=== PATIENT | female | born 1975 ===

== ENCOUNTER 2021-03-24 08:45 | Outpatient (REF) | payer OTHER, SELFPAY ==
[2021-03-24 11:32] LABS: Hematocrit 39.9 % (37-47); Hemoglobin 13.3 g/dl (12.0-16.0); Mean Corpuscular HGB Conc 33.3 g/dl (31.0-35.0); Mean Corpuscular Hemoglobin 29.8 pg (27.0-33.0); Mean Corpuscular Volume 89.5 fL (80-98); Mean Platelet Volume 10.5 fL (9.4-12.3); Platelet Count 299 X10*3/uL (160-400); Red Blood Count 4.46 X10*6/uL (4.20-5.50); Red Cell Distribution Width 12.1 % (11.0-16.0); White Blood Count 5.3 X10*3/uL (4.8-10.8)
[2021-03-24 11:49] LABS: Appearance Urine TURBID; Color Urine YELLOW; Glucose Urine UA NEG (NEG); Leukocyte Esterase Urine 1+ (NEG); Nitrite Urine NEG (NEG); Specific Gravity - Urine >= 1.030 (1.005-1.025); Urine Blood NEG (NEG); Urine Ketones NEG (NEG); Urine Protein NEG (NEG-TRACE)
[2021-03-24 12:08] LABS: Vitamin D 25-OH Total 26.2 ng/mL (>30)
[2021-03-24 12:17] LABS: Amorphous Sediment Urine 4+ /LPF; RBC Urine 0 /HPF (0); Squamous Epithelial Cell Urine 1+ /LPF; WBC Urine 0-2 /HPF (0-4)
[2021-03-24 12:21] LABS: Alanine Aminotransferase 10 U/L (0-31); Albumin Level 4.7 g/dL (3.5-5.0); Alkaline Phosphatase 55 U/L (39-117); Anion Gap 14 (12-20); Aspartate Amino Transferase 14 U/L (5-31); Bilirubin Total 0.7 mg/dL (0.0-1.0); Blood Urea Nitrogen 18 mg/dL (9-16); Calcium 9.6 mg/dL (8.4-10.2); Carbon Dioxide 25 mmol/L (22-29); Chloride 105 mmol/L (96-108); Cholesterol 195 mg/dL; Estimated Glomerular Filt Rate > 60; Glucose Fasting 96 mg/dL (60-99); HDL Cholesterol 52 mg/dL; Iron 73 mcg/dL (30-160); LDL Cholesterol Calculated 133 mg/dl; Percent Iron Saturation 21 % (15-50); Potassium 4.5 mmol/L (3.3-5.1); Sodium 139 mmol/L (135-145); Total Iron Binding Capacity 356 mcg/dL (228-428); Total Protein 7.5 g/dL (6.5-8.0); Triglycerides 53 mg/dL; Unsaturated Iron Binding 283 ug/dL
== END 2021-03-24 08:46 | disposition home or self-care (01) ==
LOC: HO.HMGCLDS 08:45
PROVIDERS: PCP Internal Medicine; Visit Provider Internal Medicine
DX: Z00.00 Encounter for general adult medical examination without abnormal findings (principal)
CPT/HCPCS: 36415; 80053; 80061; 81001; 82306; 83540; 84443; 85027

== ENCOUNTER 2023-02-07 09:05 | Outpatient (AMB) | payer OTHER, SELFPAY ==
--- NOTE | 2023-02-07 09:07 | MHC.PC.OV ---
Vital Signs 02/07/23 09:12 Height 5 ft 4 in Weight 175 lb 4 oz BMI 30.1 BP 124/76 Blood Pressure Location Lt brachial Position Sitting Pulse 82 Pulse Source Pulse Oximeter Pulse Oximetry (%) 98 Oxygen Delivery Method Room Air Intake Visit Reasons: annual PE Allergies No Known Allergies Allergy (Verified 02/07/23 09:07) Medication List - Last Reconciled 02/07/23 by Enid Head MD No Known Home Meds Tobacco use date assessed: 02/07/23 Dental Screening Dental Screen Date: 02/07/23 Did you have a dental visit in the last 12 months?: No Did you have a dental problem in the last 6 months where you did not have access to dental care?: No Was dental information given to patient?: No HPI annual PE HPI Details Pt presents for PE. Pt c/o L anterior thigh pain on and off not related to activity or position for 2 years. Patient also reports a right anterior thigh discomfort starting at the right groin radiating to anterior thigh worse after walking longer distance. Patient has been walking and jogging daily for 3 miles daily.. Patient denies right groin pain at rest. She would like to be referred to [facility] Medical History Annual physical exam Normal Pap smear Family History Sister Breast CA Mother No problems noted. 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 How often do you have a drink containing alcohol?: Never 3. How often do you have six or more drinks on one occasion?: Never Total Score: 0 Score Reviewed/Action Taken: Yes Review of Systems Const All systems reviewed & are unremarkable except as noted in HPI and below Reports no additional complaints Eyes Reports no additional complaints ENT Reports no additional complaints Card Reports no additional complaints GI Reports no additional complaints Reports no additional complaints Musc Reports no additional complaints Physical exam (Primary Care) Vital Signs: Last Vital Signs Pulse 82 02/07/23 09:12 BP 124/76 02/07/23 09:12 Pulse Ox 98 02/07/23 09:12 Oxygen Delivery Method Room Air 02/07/23 09:12 BMI result Body Mass Index 30.1 Tobacco/Smoking Status: Tobacco use Status Tobacco use date assessed 02/07/23 02/07/23 09:13 Patient Tobacco Use Status Former Tobacco user 02/07/23 09:09 e-Cigarette/Vaping Use Never Used 02/07/23 09:13 Thrive Assessment: Date of Thrive Assessment Date Thrive assessed 03/24/21 02/07/23 09:09 Const General: no acute distress HENMT Head: Yes normal to inspection Ears: hearing grossly normal bilaterally Face and sinus: Yes normal facial exam Mouth: Normal oral and palatal mucosa present Throat: Yes posterior oropharynx normal Eyes General: appearance normal, both eyes and all related structures Neck Neck: Yes no lymphadenopathy and Yes supple Resp Effort & Inspection: normal respiratory effort Auscultation: clear to auscultation bilaterally Cardio Rhythm: regular rhythm Heart sounds: S1 normal heart sound present and S2 normal heart sound present GI Inspection: Yes normal to inspection Palpation (GI): Soft to palpation Percussion: Yes normal to percussion Auscultation: normal bowel sounds Extrem Other: DROM both hips, R>L, SLR 90 JOHN Assessment and Plan Assessment & Plan (1) Right hip pain: Code(s): M25.551 - Pain in right hip Plan: refer to ortho, pt declined XR or PT (2) Left thigh pain: Code(s): M79.652 - Pain in left thigh (3) Flat feet, bilateral: Comment: REFER TO PODIATRY Code(s): M21.41 - Flat foot [pes planus] (acquired), right foot; M21.42 - Flat foot [pes planus] (acquired), left foot (4) Annual physical exam: Code(s): Z00.00 - Encounter for general adult medical examination without abnormal findings Plan: well balanced, diet, regular exercise, primary teacher for pap and mammogram (5) Colonoscopy refused: Comment: 02/27, Cologuard ordered Code(s): Z53.20 - Procedure and treatment not carried out because of patient's decision for unspecified reasons Orders: Orders Comprehensive [place]. Panel Fast Today Z00.00 - Encounter for general adult medical examination without abnormal findings Lipid Panel Today Z00.00 - Encounter for general adult medical examination without abnormal findings TSH reflex Free T4 Today Z00.00 - Encounter for general adult medical examination without abnormal findings Vitamin D 25-OH Total Today Z00.00 - Encounter for general adult medical examination without abnormal findings Complete Blood Count Auto Diff Today Z00.00 - Encounter for general adult medical examination without abnormal findings Testosterone, Free/Total Today L68.0 - Hirsutism US renal BI Today N20.0 - Calculus of kidney Referrals Orthopedics Referral M25.551 - Pain in right hip, M79.652 - Pain in left thigh Podiatry Referral M21.41 - Flat foot [pes planus] (acquired), right foot, M21.42 - Flat foot [pes planus] (acquired), left foot Cologuard Test Z12.11 - Encounter for screening for malignant neoplasm of colon, Z12.12 - Encounter for screening for malignant neoplasm of rectum Coding Level of Care Code Est Pt Prev Care 40-64y(78620) Diagnoses Right hip pain M25.551 Left thigh pain M79.652 Flat feet, bilateral M21.41; M21.42 Annual physical exam Z00.00 Colonoscopy refused Z53.20
[2023-02-07 09:12] VITALS: BP 124/76; PULSE 82; O2SAT 98; BMI 30.1
== END 2023-02-07 12:57 | disposition home or self-care (01) ==
PROVIDERS: Visit Provider Internal Medicine
DX: M25.551 Pain in right hip (principal); M79.652 Pain in left thigh; M21.41 Flat foot [pes planus] (acquired), right foot; M21.42 Flat foot [pes planus] (acquired), left foot; Z00.00 Encounter for general adult medical examination without abnormal findings; Z53.20 Procedure and treatment not carried out because of patient's decision for unspecified reasons
CPT/HCPCS: 99396

== ENCOUNTER 2023-04-10 08:18 | Outpatient (REF) | payer OTHER, SELFPAY ==
[2023-04-10 11:26] LABS: MANUAL DIFF FLAG NO
[2023-04-10 11:33] LABS: Basophils Absolute Auto 0.1 X10*3/uL (0.0-0.2); Basophils Percent Auto 1.1 % (0-2); Eosinophils Absolute Auto 0.1 X10*3/uL (0.0-0.4); Eosinophils Percent Auto 1.3 % (0-4); Hematocrit 40.2 % (37.0-47.0); Hemoglobin 13.3 g/dl (12.0-16.0); Imm Gran Abs Auto 0.05 X10*3/uL (0.00-0.03); Imm Gran Pct Auto 1.1 % (0.0-0.4); Lymphocytes Absolute Auto 1.2 X10*3/uL (1.2-4.9); Mean Corpuscular HGB Conc 33.1 g/dl (31.0-35.0); Mean Corpuscular Hemoglobin 29.8 pg (27.0-33.0); Mean Corpuscular Volume 90.1 fL (80.0-98.0); Mean Platelet Volume 11.1 fL (9.4-12.3); Monocytes Absolute Auto 0.4 X10*3/uL (0.1-1.2); Monocytes Percent Auto 9.1 % (2-11); Neutrophils Absolute Auto 2.7 x10*3/uL (2.0-8.3); Neutrophils Percent Auto 60.4 % (45-73); Platelet Count 285 X10*3/uL (160-400); Red Blood Count 4.46 X10*6/uL (4.20-5.50); White Blood Count 4.5 X10*3/uL (4.8-10.8)
[2023-04-10 12:02] LABS: Alanine Aminotransferase 8 U/L (0-31); Albumin Level 4.5 g/dL (3.5-5.0); Alkaline Phosphatase 52 U/L (39-117); Anion Gap 12 (12-20); Aspartate Amino Transferase 15 U/L (5-31); Bilirubin Total 0.5 mg/dL (0.0-1.0); Blood Urea Nitrogen 15 mg/dL (9-16); Calcium 9.6 mg/dL (8.4-10.2); Carbon Dioxide 22 mmol/L (22-29); Chloride 107 mmol/L (96-108); Cholesterol 141 mg/dL (<200); Estimated Glomerular Filt Rate > 60; Glucose Fasting 84 mg/dL (60-99); HDL Cholesterol 39 mg/dL (>40); LDL Cholesterol Calculated 95 mg/dL (<100); Potassium 4.2 mmol/L (3.3-5.1); Sodium 137 mmol/L (135-145); Total Protein 7.4 g/dL (6.5-8.0); Triglycerides 35 mg/dL (<150)
[2023-04-10 12:20] LABS: TSH reflex Free T4 1.85 uIU/mL (0.32-4.0); Vitamin D 25-OH Total 40.2 ng/mL (>30)
[2023-04-19 15:40] LABS: Testosterone, Free 1.8 pg/mL (0.1-6.4); Testosterone, Total 16 ng/dL (2-45)
== END 2023-04-10 08:19 | disposition home or self-care (01) ==
LOC: HO.HMGCLDS 08:18
PROVIDERS: PCP Internal Medicine; Visit Provider Internal Medicine
DX: Z00.00 Encounter for general adult medical examination without abnormal findings (principal); L68.0 Hirsutism
CPT/HCPCS: 36415; 80053; 80061; 82306; 84402; 84403; 84443; 85025

== ENCOUNTER 2023-06-03 14:23 | Outpatient (AMB) | payer OTHER, SELFPAY ==
[2023-06-03 14:33] VITALS: BP 104/66; PULSE 81; O2SAT 99; BMI 25.6
--- NOTE | 2023-06-03 14:33 | MHC.PC.OV ---
Vital Signs 06/03/23 14:33 Height 5 ft 4 in Weight 149 lb BMI 25.6 BP 104/66 Blood Pressure Location Lt brachial Position Sitting Pulse 81 Pulse Source Pulse Oximeter Pulse Oximetry (%) 99 Oxygen Delivery Method Room Air Intake Visit Reasons: Chest Congestion/Dry Cough/Scratchy Throat Intake Note: Pt is here today for a sick visit. Pt c/o chest congestion, dry cough. Pt states that she was feeling better and then her fever came back. Allergies No Known Allergies Allergy (Verified 06/03/23 14:36) Medication List - Last Reconciled 06/03/23 by Enid Head MD azithromycin 250 mg PO DAILY 6 days Tobacco use date assessed: 02/07/23 HPI Chest Congestion/Dry Cough/Scratchy Throat HPI Details Pt c/o 3 weeks of productive cough, fever on and off, fatigue. Patient denies pleurisy or shortness of breath PFSH Medical History Annual physical exam Normal Pap smear Family History Sister Breast CA Mother No problems noted. 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, walks qd Patient Tobacco Use Status: Former Tobacco user Years Smoked: 2 yrs e-Cigarette/Vaping Use: Never Used Current occupational status: employed Cognitive needs: No Hearing needs: No Vision needs: No Questionnaire Thrive Questionnaire Date Thrive assessed: 03/24/21 Review of Systems Const All systems reviewed & are unremarkable except as noted in HPI and below Reports no additional complaints Eyes Reports no additional complaints ENT Reports no additional complaints Card Reports no additional complaints Resp Reports no additional complaints GI Reports no additional complaints Physical exam (Primary Care) Vital Signs: Last Vital Signs Pulse 81 06/03/23 14:33 BP 104/66 06/03/23 14:33 Pulse Ox 99 06/03/23 14:33 Oxygen Delivery Method Room Air 06/03/23 14:33 BMI result Body Mass Index 25.6 Tobacco/Smoking Status: Tobacco use Status Tobacco use date assessed 02/07/23 06/03/23 14:33 Patient Tobacco Use Status Former Tobacco user 06/03/23 14:33 e-Cigarette/Vaping Use Never Used 06/03/23 14:33 Thrive Assessment: Date of Thrive Assessment Date Thrive assessed 03/24/21 06/03/23 14:33 Const General: no acute distress HENMT Head: Yes normal to inspection Ears: hearing grossly normal bilaterally Throat: Yes postnasal drainage Eyes General: appearance normal, both eyes and all related structures Neck Neck: Yes supple Resp Effort & Inspection: normal respiratory effort Auscultation: rhonchi and diminished lung sounds Cardio Rhythm: regular rhythm Heart sounds: S1 normal heart sound present and S2 normal heart sound present Assessment and Plan Assessment & Plan (1) URI (upper respiratory infection): Code(s): J06.9 - Acute upper respiratory infection, unspecified Plan: Z candelaria and supportive care Medications: New azithromycin start on day 2 of therapy 250 mg PO DAILY 6 days 6 tabs 0RF Coding Level of Care Code Est Pt Level 3 (32874) Diagnoses URI (upper respiratory infection) J06.9
== END 2023-06-03 14:54 | disposition home or self-care (01) ==
PROVIDERS: PCP Internal Medicine; Visit Provider Internal Medicine
DX: J06.9 Acute upper respiratory infection, unspecified (principal)
CPT/HCPCS: 99213

== ENCOUNTER 2024-02-06 13:04 | Outpatient (AMB) | payer BC, SELFPAY ==
[2024-02-06 13:05] VITALS: BP 114/72; PULSE 94; O2SAT 97; BMI 24.9
--- NOTE | 2024-02-06 13:05 | A.OFFPC_ITS ---
Vital Signs 02/06/24 13:05 Height 5 ft 4 in Weight 145 lb BMI 24.9 BP 114/72 Blood Pressure Location Rt brachial Position Sitting Pulse 94 Pulse Source Pulse Oximeter Pulse Oximetry (%) 97 Oxygen Delivery Method Room Air Intake Visit Reasons: Shoulder injury Intake Note: Pt is here today for a sick visit. Pt c/o L shoulder pain since 01/19/24. Allergies No Known Allergies Allergy (Verified 02/06/24 13:10) Medication List - Last Reconciled 02/06/24 by Enid Head MD No Known Home Meds Tobacco use date assessed: 02/06/24 Dental Screening Dental Screen Date: 02/06/24 Did you have a dental visit in the last 12 months?: Yes Did you have a dental problem in the last 6 months where you did not have access to dental care?: No Was dental information given to patient?: Patient has dentist HPI Shoulder injury HPI Details Pt c/o persistent daily L shoulder pain pulling sensation from neck to lateral lower shoulder at rest, occasionally waking patient up at night and also when trying to use it. It started of lifting a lot heavy chairs and trays during a green party in mid January. Pt tried heat, OTC ibuprofen for 3 days which caused stomach. 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 COUNT INCLUDES THE [facility] Medical History Normal Pap smear Annual physical exam Family History Sister Breast CA Mother No problems noted. 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 88255 - PHQ-9 Billing: Patient declined-do not bill Source: Developed by Drs. Fredis Watts, Savana Olea, Jake Feilz and colleagues, with an educational shaquille from [employer]. Thrive Questionnaire Date Thrive assessed: 02/06/24 I am a: Patient What is your living situation today?: I choose not to answer this question Within the past 12 months, did the food you bought not last and you didn't have the money to get more?: I choose not to answer this question Within the past 12 months, did you worry whether your food would run out before you got money to buy more?: I choose not to answer this question Do you have trouble paying for medicines?: I choose not to answer this question Do you have trouble getting transportation to medical appointments?: I choose not to answer this question Do you have trouble paying your heating and electricity bill?: I choose not to answer this question Do you have trouble taking care of your child, family member or friend?: I choose not to answer this question Do you have trouble with day-to-day activities such as bathing, preparing meals, shopping, managing finances, etc.?: I choose not to answer this question Are you currently unemployed and looking for a job?: I choose not to answer this question Are you interested in more education?: I choose not to answer this question Please select the resources that you would like help with: Housing/Correction Currently or been in a relationship where the following occur: I choose not to answer THRIVE Score: 0 AUDIT C Alcohol Use Questionnaire (AUDIT-C) 1. How often do you have a drink containing alcohol?: Never 3. How often do you have six or more drinks on one occasion?: Never Total Score: 0 SAMARA-7 AMB Questionnaire SAMARA-7 Date SAMARA - 7 assessed: 02/06/24 Source: Developed by Drs. Fredis Watts, Savana Olea, Jake Feliz and colleagues, with an educational shaquille from [employer]. SAMARA-7 Assessment Billing SAMARA-7 Assessment Tool: pt declined-do not bill Review of Systems Const All systems reviewed & are unremarkable except as noted in HPI and below Card Reports no additional complaints Resp Reports no additional complaints GI Reports no additional complaints Reports no additional complaints Physical exam (Primary Care) Vital Signs: Last Vital Signs Pulse 94 02/06/24 13:05 BP 114/72 02/06/24 13:05 Pulse Ox 97 02/06/24 13:05 Oxygen Delivery Method Room Air 02/06/24 13:05 BMI result Body Mass Index 24.9 Tobacco/Smoking Status: Tobacco use Status Tobacco use date assessed 02/06/24 02/06/24 13:07 Patient Tobacco Use Status Former Tobacco user 02/06/24 13:07 e-Cigarette/Vaping Use Never Used 02/06/24 13:07 Thrive Assessment: Date of Thrive Assessment Date Thrive assessed 02/06/24 02/06/24 13:07 Currently or been in a relationship where the following occur: I choose not to answer Const General: no acute distress HENMT Head: Yes normal to inspection Neck Neck: Yes supple Extrem Other: There is a slightly decreased range of motion when reaching behind the back and overhead of the left shoulder. There is reproducible tenderness over the lateral shoulder, no soft tissue swelling erythema or warmth Assessment and Plan Assessment & Plan (1) Shoulder pain, left: Code(s): M25.512 - Pain in left shoulder Plan: Possible rotator cuff tear , MRI will be obtained patient will be referred to orthopedic surgeon. She declined physical therapy Orders: Orders MR shoulder LT wo con Today M25.512 - Pain in left shoulder Referrals Orthopedics Referral M25.512 - Pain in left shoulder Coding Level of Care Code Est Pt Level 3 (95516) Diagnoses Shoulder pain, left M25.512
== END 2024-02-06 14:12 | disposition home or self-care (01) ==
PROVIDERS: PCP Internal Medicine; Visit Provider Internal Medicine
DX: M25.512 Pain in left shoulder (principal)
CPT/HCPCS: 99213

== ENCOUNTER 2024-02-13 13:09 | Outpatient (AMB) | payer BC, SELFPAY ==
--- OUTSIDE RECORDS SUMMARY | 2024-02-13 13:13 | XMS_ITS | Continuity of Care Document ---
Author Organization [facility] ter Address [address] [place] [id number]- Care Team Providers Care Home Appraiser Name Role Phone Nathan Dobson DO Primary Care Physician Encounter [facility] Date(s): 08/25/19 - 10/25/[address] [address]- [facility] Attending Physician: [facility] , Self Referral Admitting Physician: [facility] , Self Referral Referring Physician: [facility] , Self Referral Allergies, Adverse Reactions, Alerts Substance Reaction Severity Status NKA Active
--- NOTE | 2024-02-13 13:15 | MHC.PC.OV ---
Vital Signs 02/13/24 13:22 Height 5 ft 4 in Weight 145 lb BMI 24.9 BP 114/74 Blood Pressure Location Lt brachial Position Sitting Pulse 81 Pulse Source Pulse Oximeter Pulse Oximetry (%) 98 Oxygen Delivery Method Room Air Intake Visit Reasons: PE Intake Note: Pt is here today for a PE. Allergies No Known Allergies Allergy (Verified 02/06/24 13:10) Medication List - Last Reconciled 02/13/24 by Enid Head MD No Known Home Meds Tobacco use date assessed: 02/06/24 Dental Screening Dental Screen Date: 02/06/24 HPI PE HPI Details Pt presents for PE. [facility] Medical History Normal Pap smear Annual physical exam Family History Sister Breast CA Mother No problems noted. 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 Fredis Watts, Savana Olea, Jake Feliz and colleagues, with an educational shaquille from [employer]. Review of Systems Const All systems reviewed & are unremarkable except as noted in HPI and below Eyes Reports no additional complaints ENT Reports no additional complaints Card Reports no additional complaints Resp Reports no additional complaints GI Reports no additional complaints Reports no additional complaints Physical exam (Primary Care) Vital Signs: Last Vital Signs Pulse 81 02/13/24 13:22 BP 114/74 02/13/24 13:22 Pulse Ox 98 02/13/24 13:22 Oxygen Delivery Method Room Air 02/13/24 13:22 BMI result Body Mass Index 24.9 Tobacco/Smoking Status: Tobacco use Status Tobacco use date assessed 02/06/24 02/13/24 13:17 Patient Tobacco Use Status Former Tobacco user 02/13/24 13:17 e-Cigarette/Vaping Use Never Used 02/13/24 13:17 Thrive Assessment: Date of Thrive Assessment Date Thrive assessed 02/06/24 02/13/24 13:17 Const General: no acute distress HENMT Head: Yes normal to inspection Ears: hearing grossly normal bilaterally Face and sinus: Yes normal facial exam Mouth: Normal oral and palatal mucosa present Eyes General: appearance normal, both eyes and all related structures Neck Neck: Yes no lymphadenopathy and Yes supple Resp Effort & Inspection: normal respiratory effort Auscultation: clear to auscultation bilaterally Cardio Rhythm: regular rhythm Heart sounds: S1 normal heart sound present and S2 normal heart sound present GI Inspection: Yes normal to inspection Palpation (GI): Soft to palpation Percussion: Yes normal to percussion Auscultation: normal bowel sounds Assessment and Plan Assessment & Plan (1) Annual physical exam: Code(s): Z00. - Encounter for general adult medical examination without abnormal findings Plan: Well-balanced diet regular physical activity discussed with the patient she will return for fasting blood work Orders: Orders Lipid Panel Today Z00.00 - Encounter for general adult medical examination without abnormal findings Vitamin D 25-OH Total Today Z00.00 - Encounter for general adult medical examination without abnormal findings Comprehensive [place]. Panel Fast Today Z00.00 - Encounter for general adult medical examination without abnormal findings Complete Blood Count Auto Diff Today Z00.00 - Encounter for general adult medical examination without abnormal findings TSH reflex Free T4 Today Z00.00 - Encounter for general adult medical examination without abnormal findings UA w Microscopic Today Z00.00 - Encounter for general adult medical examination without abnormal findings Referrals Gastroenterology Referral Z00.00 - Encounter for general adult medical examination without abnormal findings Medications: New meloxicam 15 mg PO DAILY 20 tabs 0RF Coding Level of Care Code Est Pt Prev Care 40-64y(85047) Diagnoses Annual physical exam Z00.00
[2024-02-13 13:22] VITALS: BP 114/74; PULSE 81; O2SAT 98; BMI 24.9
== END 2024-02-13 14:04 | disposition home or self-care (01) ==
PROVIDERS: PCP Internal Medicine; Visit Provider Internal Medicine
DX: Z00.00 Encounter for general adult medical examination without abnormal findings (principal)
CPT/HCPCS: 99396

== ENCOUNTER 2024-09-09 08:43 | Outpatient (REF) | payer BC, SELFPAY ==
--- OUTSIDE RECORDS SUMMARY | 2024-09-09 09:23 | XMS_ITS ---
Author Organization [facility] Address [address] [address] Care Team Providers Care Labor And Delivery Nurse Name Role Phone Unknown, Unknown Primary Care Provider Unavailab GILBERTO Rodgers Unavailable [phone] REASON FOR VISIT Prescription Encounters Encounter Location Date Provider Diagnosis [facility] [address] [address] 09/01/2024 GILBERTO HEDRICK Plan Of Treatment No Information Progress Notes * Franny WILLISDOB: 7 (48 yo F)Acc No.[id number]:09/01/2024 Patient:?Franny WILLIS :1975???Age:48 Y???Sex:Female Phone: Address:[place] [address], [address] [place], [address] * true * Date:? Generated for Kim valenzuela/Flaco/eTransmitting on:?09/09/2024 09:23 AM EST
--- OUTSIDE RECORDS SUMMARY | 2024-09-09 09:23 | XMS_ITS | Patient Health Record ---
Author Organization [facility] Address [address] [place] [address] [address] [place] [address] Care Team Providers Care Salesperson [employer] Access[employer] Name Role Phone Unknown, Unknown Primary Care Provider Unavailab GILBERTO Rodgers Unavailable [phone] Allergies No Known Allergies Reason For Referral No Information Medications Medication SIG (Take, Route, Fr equency, Duration) Notes Start Date End Date Status Wegovy 0.25 MG/0.5ML 0.25 mg Subcutaneou s once a week for 30 days 07/31/2024 Active Problems Problem Type SNOMED Code ICD Code Onset Dates Problem Status W/U Status Risk Notes Problem Obesity due to excess calories (363071722) Other obesity due to excess calories (E66.09) Active confirmed Vital Signs Heart Rate 89 /min 07/31/2024 Temperature 97.1 degrees Fahrenheit 07/31/2024 Blood pressure diastolic 84 mm Hg 07/31/2024 Oximetry 98 % 07/31/2024 Height 5'4'' in 07/31/2024 Blood pressure systolic 120 mm Hg 07/31/2024 Weight 183.7 lbs 07/31/2024 BMI 31.53 kg/m2 07/31/2024 Encounters Encounter Location Date Provider Diagnosis [address] [place] [address] 07/23/2024 GILBERTO HEDRICK Other obesity due to excess calories E66.09 and Dietary counseling and surveillance Z71.[address] [place] [address] 07/31/2024 GILBERTO HEDRICK Dietary counseling a nd surveillance Z71.3 and Other obesity due to excess calories E66.[address] [place] [address] 07/31/2024 [facility] [address] [facility] [address] [place] [address] 09/01/2024 MACIASHI HEDRICK Assessments Encounter Date Diagnosis (ICD Code) Assessment Notes Treatment Notes Treatment Clinical Notes Section Notes 07/23/2024 Other obesity due to excess calories (ICD-10 - E66.09) Mrs Willis is 48 years old lady who is here today to discuss weight management. She was on GLP-1 from online physician from [place] and she lost roughly 40-50 pound which should be gained. Mostly it is calorie weight. She wants to do medical weight management Diet recommendation. Different dietary modalities discussed with the patient. She was advised to restrict her calories to less than 1500 kcal in 24 hours. Portion control recommended. Low glycemic index foods explained and education material given. Information on Numetra discussed. Mediterranean diet, keto diet, low carbohydrate diet explained and discussed with the patient. Patient advised to download applications for calorie counting. Patient was also advised to use dyei-evj-whhwxdu vitamin D3 supplements and multivitamins. Pharmacotherapy. Patient will discuss with her insurance company regarding pharmacotherapy before re-proceed. Different medications and their side effects discussed with the patient. She will benefit from pharmacotherapy and does not have any contraindications Exercise. Patient encouraged to To do regular exercise. Encouraged to do aerobic and anaerobic exercises at least 3-4 days a week. Goal is to burn at least 250-500 in One session Behavioral therapy. Importance of behavioral health and weight management discussed with the patient. CBT and motivational interviewing will benefit the patient. If needed will do a referral to a psychologist/psych iatrist. Bariatric surgery.she is not a candidate for bariatric surgery She Will have screening blood work in the next few days and she will bring a copy Assessed. The patient was assessed and patient does not have any behavioral risk or factors affecting goals of therapy Advised. Patient was given a personalized plan regarding the goals and pros and cons of the treatment Agreed. Collaboratively picked up a treatment plan and patient agreed with the plan Assisted. Patient is assisted in achieving goals. Arrange. Schedule follow-up with the patient to provide ongoing assistance and support and to review the management and treatment plan. Counseling. A total of 40 minutes spent with the patient and more than 50% of time was spent with the patient counseling and educating on different diets, side effects of different medications, pros and cons of medical and surgical weight management, importance of exercise and weight loss and psych intervention for weight loss. 07/23/2024 Dietary counseling and surveillance (ICD-10 - Z71.3) Mrs Willis is 48 years old lady who is here today to discuss weight management. She was on GLP-1 from online physician from [place] and she lost roughly 40-50 pound which should be gained. Mostly it is calorie weight. She wants to do medical weight management Diet recommendation. Different dietary modalities discussed with the patient. She was advised to restrict her calories to less than 1500 kcal in 24 hours. Portion control recommended. Low glycemic index foods explained and education material given. Information on Numetra discussed. Mediterranean diet, keto diet, low carbohydrate diet explained and discussed with the patient. Patient advised to download applications for calorie counting. Patient was also advised to use lmyz-[id number]-tvqtawg vitamin D3 supplements and multivitamins. Pharmacotherapy. Patient will discuss with her insurance company regarding pharmacotherapy before re-proceed. Different medications and their side effects discussed with the patient. She will benefit from pharmacotherapy and does not have any contraindications Exercise. Patient encouraged to To do regular exercise. Encouraged to do aerobic and anaerobic exercises at least 3-4 days a week. Goal is to burn at least 250-500 in One session Behavioral therapy. Importance of behavioral health and weight management discussed with the patient. CBT and motivational interviewing will benefit the patient. If needed will do a referral to a psychologist/psych iatrist. Bariatric surgery.she is not a candidate for bariatric surgery She Will have screening blood work in the next few days and she will bring a copy Assessed. The patient was assessed and patient does not have any behavioral risk or factors affecting goals of therapy Advised. Patient was given a personalized plan regarding the goals and pros and cons of the treatment Agreed. Collaboratively picked up a treatment plan and patient agreed with the plan Assisted. Patient is assisted in achieving goals. Arrange. Schedule follow-up with the patient to provide ongoing assistance and support and to review the management and treatment plan. Counseling. A total of 40 minutes spent with the patient and more than 50% of time was spent with the patient counseling and educating on different diets, side effects of different medications, pros and cons of medical and surgical weight management, importance of exercise and weight loss and psych intervention for weight loss. 07/31/2024 Other obesity due to excess calories (ICD-10 - E66.09) Margareth is 48 years old lady who is here for medical weight management. She has used GLP-1 ones in the past and she has lost weight Dietary recommendations. Food recall was done today and patient advised to be on low calorie, low carbohydrate diet. Restrict calories to less than 1500 kcal in 24 hours. Low glycemic index foods and encouraged. Meal replacements were recommended. Advised to use pfet-kwc-wxlynhs multivitamins and vitamin D. Advised to use calorie counter and adhere to portion control. Monthly goal is to lose 4-6 pounds Pharmacotherapy. She is interested and wegovy and started on 0.25 mg every weekly and will titrate up as needed. Side effects explained to the patient. Goal is to lose 3-5% of body weight in 3 months. Exercise. Patient encouraged to increase frequency, intensity and duration of exercise. Encouraged to burn at least 250-500 kcal in one session. Also encouraged to do weight training Assess. Different risk factors discussed with the patient and addressed Advise. Patient was given clear And specific advise that she will comply with Low-calorie diet and try not to exceed more than 1300 kcal in 24 hours. Agree. Mutually agreed to work together to achieve appropriate goals Assist. Motivational interviewing done. Arrange. Follow-up appointment arranged. Counseling. 20 minutes spent Face to face with the patient more than 50% of time was spent counseling 07/31/2024 Dietary counseling and surveillance (ICD-10 - Z71.3) Margareth is 48 years old lady who is here for medical weight management. She has used GLP-1 ones in the past and she has lost weight Dietary recommendations. Food recall was done today and patient advised to be on low calorie, low carbohydrate diet. Restrict calories to less than 1500 kcal in 24 hours. Low glycemic index foods and encouraged. Meal replacements were recommended. Advised to use xiqi-vjc-bmrvczc multivitamins and vitamin D. Advised to use calorie counter and adhere to portion control. Monthly goal is to lose 4-6 pounds Pharmacotherapy. She is interested and wegovy and started on 0.25 mg every weekly and will titrate up as needed. Side effects explained to the patient. Goal is to lose 3-5% of body weight in 3 months. Exercise. Patient encouraged to increase frequency, intensity and duration of exercise. Encouraged to burn at least 250-500 kcal in one session. Also encouraged to do weight training Assess. Different risk factors discussed with the patient and addressed Advise. Patient was given clear And specific advise that she will comply with Low-calorie diet and try not to exceed more than 1300 kcal in 24 hours. Agree. Mutually agreed to work together to achieve appropriate goals Assist. Motivational interviewing done. Arrange. Follow-up appointment arranged. Counseling. 20 minutes spent Face to face with the patient more than 50% of time was spent counseling Plan Of Treatment No Information Insurance Providers Payer Name Payer Address Payer Phone Subscriber Number Group Number Insured Name Patient Relationship to Insured Coverage Start Date Coverage End Date [facility] [address] [place] [address] [phone] [id number] Franny Willis Self - patient is the insured Medical (General) History Medical History History ICD Code obesity Surgical History Surgery Date(Month/Year) Breast augmentation
--- OUTSIDE RECORDS SUMMARY | 2024-09-09 09:23 | XMS_ITS ---
Author Organization [facility] Address [address] [address] Care Team Providers Care Legal Assistant Name Role Phone Unknown, Unknown Primary Care Provider Unavailab GILBERTO Rodgers Unavailable [phone] REASON FOR VISIT Ann Spangler (pending) Encounters Encounter Location Date Provider Diagnosis [facility] [address] [address] 07/31/2024 GILBERTO HEDRICK Plan Of Treatment No Information Progress Notes * ELLENVic BeattypayamDOB: 7 (48 yo F)Acc No.[id number]:07/31/2024 Patient:?Franny WILLIS :1975???Age:48 Y???Sex:Female Phone: Address:[place] [address], [address] [place], [address] * * Date:?
--- OUTSIDE RECORDS SUMMARY | 2024-09-09 09:23 | XMS_ITS ---
Author Organization [facility] Address [address] [address] Care Team Providers Care Cargo Services Coordinator Name Role Phone Unknown, Unknown Primary Care Provider Unavailab GILBERTO Rodgers Unavailable [phone] REASON FOR VISIT WM f/up Encounters Encounter Location Date Provider Diagnosis [facility] [address] [address] 08/28/2024 GILBERTO HEDRICK Plan Of Treatment No Information Progress Notes * Franny WILLISDOB: [birth year] (48 yo F)Acc No.[id number]:08/28/2024 Patient:?Franny WILLIS Provider:?GILBERTO HEDRICK MD :1975???Age:48 Y???Sex:Female D ate:08/28/2024 Phone: Address:[place] [address], [address] [place], [place] [id number] Pcp:Unknown Unknown Subjective: * Chief Complaints: * ???1. WM f/up. * Medical History:? Objective: * Vitals:? Assessment: Plan: * Treatment: * * Electronic signature of ASIYA HEDRICK MD on 09/09/2024 at 09:23 AM EST Sign off status: Pending * Provider:?GILBERTO HEDRICK MD Date:?08/28 Generated for Kim valenzuela/[employer]/[facility] on:?09/09/2024 09:23 AM EST
[2024-09-09 10:12] LABS: Appearance Urine Cloudy; Color Urine Yellow; Glucose Urine UA Negative (Negative); Leukocyte Esterase Urine Large (3+) (Negative); Nitrite Urine Negative (Negative); PH 5.5 (5.0-9.0); UMIC TRIGGER UA YES; Urine Blood Trace (Negative); Urine Ketones Negative (Negative); Urine Protein Trace mg/dL (Neg-Trace)
[2024-09-09 10:31] LABS: Bacteria Urine 4+ (None Seen); WBC Urine >50 /HPF (0-5)
[2024-09-09 10:48] LABS: MANUAL DIFF FLAG NO
[2024-09-09 10:56] LABS: Basophils Absolute Auto 0.1 X10*3/uL (0.0-0.2); Basophils Percent Auto 0.9 % (0-2); Eosinophils Absolute Auto 0.1 X10*3/uL (0.0-0.4); Eosinophils Percent Auto 1.7 % (0-4); Hematocrit 40.6 % (37.0-47.0); Hemoglobin 13.7 g/dl (12.0-16.0); Imm Gran Abs Auto 0.01 X10*3/uL (0.00-0.03); Imm Gran Pct Auto 0.2 % (0.0-0.4); Lymphocytes Absolute Auto 1.4 X10*3/uL (1.2-4.9); Lymphocytes Percent Auto 25.9 % (20-40); Mean Corpuscular HGB Conc 33.7 g/dl (31.0-35.0); Mean Corpuscular Hemoglobin 30.2 pg (27.0-33.0); Mean Corpuscular Volume 89.4 fL (80.0-98.0); Mean Platelet Volume 10.2 fL (9.4-12.3); Monocytes Absolute Auto 0.5 X10*3/uL (0.1-1.2); Monocytes Percent Auto 9.7 % (2-11); Neutrophils Absolute Auto 3.3 x10*3/uL (2.0-8.3); Neutrophils Percent Auto 61.6 % (45-73); Platelet Count 277 X10*3/uL (160-400); Red Blood Count 4.54 X10*6/uL (4.20-5.50); Red Cell Distribution Width 12.1 % (11.0-16.0); White Blood Count 5.4 X10*3/uL (4.8-10.8)
[2024-09-09 11:29] LABS: Alanine Aminotransferase 16 U/L (0-31); Albumin Level 4.4 g/dL (3.5-5.0); Alkaline Phosphatase 50 U/L (39-117); Anion Gap 9 (12-20); Aspartate Amino Transferase 19 U/L (5-31); Bilirubin Total 0.6 mg/dL (0.0-1.0); Blood Urea Nitrogen 20 mg/dL (9-16); Calcium 9.3 mg/dL (8.4-10.2); Carbon Dioxide 25 mmol/L (22-29); Chloride 107 mmol/L (96-108); Cholesterol 211 mg/dL (<200); Estimated Glomerular Filt Rate > 60; Glucose Fasting 96 mg/dL (60-99); HDL Cholesterol 60 mg/dL (>40); LDL Cholesterol Calculated 138 mg/dL (<100); Sodium 137 mmol/L (135-145); Total Protein 7.8 g/dL (6.5-8.0); Triglycerides 66 mg/dL (<150)
[2024-09-09 11:50] LABS: TSH reflex Free T4 2.37 uIU/mL (0.32-4.0); Vitamin D 25-OH Total 28.6 ng/mL (>30)
== END 2024-09-09 08:44 | disposition home or self-care (01) ==
LOC: HO.HMGCLDS 08:43
PROVIDERS: PCP Internal Medicine; Visit Provider Internal Medicine
DX: Z00.00 Encounter for general adult medical examination without abnormal findings (principal); Z13.6 Encounter for screening for cardiovascular disorders
CPT/HCPCS: 36415; 80053; 80061; 81001; 82306; 84443; 85025